=== PATIENT | male | born 1955 | race Caucasian/White ===

== ENCOUNTER 2017-01-26 17:44 | Inpatient (IN) | payer MEDICAID ==
[~2017-01-26] VITALS: Ht 172.7 cm; Wt 65.8 kg
[~2017-01-26 17:44] MED LIST: CIPRO 500MG TA500 MG PO; PREDNISONE 10MG10 MG PO
[2017-01-26 17:50] VITALS: BP 124/74
--- OUTSIDE RECORDS SUMMARY | 2017-01-26 18:39 | External Medical Summary Rpt ---
Author Author , Organization [employer] Address Unknown Phone Unavailable Purpose Continuity of Care Document - through 2016
--- OUTSIDE RECORDS SUMMARY | 2017-01-26 18:39 | External Medical Summary Rpt ---
Author Author [employer] Organization [employer] Address Unknown Phone Unavailable Purpose Continuity of Care Document - through 2016
--- OUTSIDE RECORDS SUMMARY | 2017-01-26 18:39 | External Medical Summary Rpt ---
Demographics Preferred Language New Zealander Marital Status Unknown Rastafari Affiliation Unknown Race Unknown Ethnic Group Unknown Author Author , Organization [employer] Address Unknown Phone Unavailable Purpose Continuity of Care Document - through 2016 Immunization No patient found.
--- OUTSIDE RECORDS SUMMARY | 2017-01-26 18:39 | External Medical Summary Rpt ---
Author Author [facility] [employer], [employer] Organization [employer] Address Unknown Phone Unavailable
--- OUTSIDE RECORDS SUMMARY | 2017-01-26 18:39 | External Medical Summary Rpt ---
Demographics Preferred Language Georgian Marital Status Unknown Hindu Affiliation Unknown Race Unknown Ethnic Group Unknown Author Author , Organization [employer] Address Unknown Phone Unavailable Purpose Continuity of Care Document - through 2016 Immunization No patient found.
[2017-01-26 18:58] LABS: HEMOGLOBIN 15.8 g/dL (14.1-18.0); LYMPH # 0.9 K/mm3 (0.7-4.5); LYMPH % 12.8 % (10-50)
--- NOTE | 2017-01-26 19:06 | Emergency Room Report ---
History of Present Illness Time Seen by MD Swain Presenting Problem in Triage Pt arrived:Walked Presenting Problem:PT SIGNIFICANT OTHER STATES PT HAS HAD DIFFICULTY HEARING X3 DAYS, PRODUCTIVE COUGH Onset of symptoms date/time:01/23/17/ or onset unknown for:MEDICAL HX UNKNOWN Treatment Prior to Arrival: TEXTILE DYER Provided by: Sepsis Risk Assessment: Temp: 103.1 B/P: 117/82 MAP: 90 Pulse: 111 Resp: 20 Recent fever? Y Clinical Suspician of Infection? N Mental Status: 1 - Regular (Normal Baseline) Sepsis Risk:Possible Sepsis Risk Have you (or family members/close friends) recently traveled outside the [place]? N If Yes, where/when: Have you had exposure to infectious disease within the past month? N TB? Other? Specify: Source patient, RN notes reviewed, family, old records Exam Limitations no limitations Comment over the last few days prod cough with sob and fever with dec po intake Cardiac Chest Pain Chest pain indicative of cardiac No Timing/Duration this evening Severity moderate ALLERGIES Coded Allergies: No Known Allergies (01/26/17) Home Medications Reported Medications No Known Home Medications History Medical History General CAD? No Angina: No [place]: No Hypertension? No Hyperlipidemia? No CHF? No DVT? No PE? No COPD? No Asthma? No Anemia? No GERD? No Gastric ulcers? No GI Bleed? No Hernia? No Thyroid Problems? No Hypothyroidism? No CVA? No Seizures? No Diabetes? No Renal Insuffiency? No End Stage Renal Disease? No UTI? No Stones? No GB Disease: No Nephritic Syndrome? No Asplenia? No Hepatitis? No Sickle Cell Disease? No Arthritis? No Migraines? No Cataracts? No Glaucoma? No MRSA? No HIV? No TB? No Anxiety? No Depression? No Cancer? No More? No Immunization Hx DT/Tetanus UNKNOWN Flu NEVER Pneumonia NEVER Surgical Hx Previous Surgery?Y NASAL CAUTERY A CHILD THROAT POLYP REMOVED Family History Family Hx Diabetes Yes CAD Yes Hypertension No Hyperlipidemia No Cancer No TB No Social History Smoking Hx Smoker: Current Every Day Smoker Tobacco: Yes Type Cigarettes Packs/day < 1 Pack Alcohol Alcohol: Yes Drugs none Review of Systems All Other Systems Reviewed and Negative Constitutional see HPI, fever Eyes denies drainage ENT denies: ear pain, epistaxis, throat pain. Respiratory cough, shortness of breath, denies wheezing Cardiovascular denies chest pain, denies syncope Gastrointestinal see HPI, denies abdominal pain, denies diarrhea, denies vomiting, other Genitourinary denies: dysuria, frequency, hesitancy, hematuria. Musculoskeletal denies back pain, denies joint pain, denies joint swelling, denies neck pain Skin denies rash Psychiatric/Neurological denies headache, denies seizure Physical Exam Vital Signs Vital Signs Date Time Temp Pulse Resp B/P Pulse O2 O2 Flow FiO2 Ox Delivery Rate 01/27 1844 103.1 111 20 117/82 92 01/26 1750 100.2 117 22 124/74 96 - WBC >12,000 or <4,000 or 10% bands? 2 or more SIRS Criteria Met? B/P:117/82 MAP:90 Creatinine >2.0? UA output<0.5ml/kg/hr for 2 hrs? Platelet count >100,000? Lactate >2.0mmol/1? INR >1.2 or PTT > than 60 sec? Evidence of Organ Dysfunction? Provider documented clinical suspician of infection? N Sepsis Criteria Count: 2 Sepsis Risk: Possible Sepsis Risk General Appearance no apparent distress Eye Exam - bilateral eye PERRL, bilateral eye EOMI Ear, Nose, Throat normal ENT inspection Neck supple Respiratory Status No: respiratory distress. Lung Sounds bilateral: rhonchi. 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 No Results/Orders Laboratory Tests 01/26/171839: Lactic Acid 1.5 01/26/171839: Creatine Kinase 302, CK-MB (CK-2) Rel Index 0.2, CK and CKMB Interp < 0.5, Troponin I 0.02 01/26/171839: Sodium 126 L, Potassium 3.8, Chloride 92 L, Carbon Dioxide 23, BUN 32 H, Creatinine 1.5 H, Estimated Creat Clear 55, Estimated GFR (MDRD) 48, Glucose 143 H, Calcium 7.7 L, Total Bilirubin 0.3, AST 43 H, ALT 32, Alkaline Phosphatase 43 L, Total Protein 7.6, Albumin 3.1 L, Globulin 4.5 H, Albumin/ Globulin Ratio 0.7 L, WBC 7.3, RBC 4.88, Hgb 15.8, Hct 47.2, MCV 96.6, RDW 12.6 , Plt Count 108 L, MPV 8.5, Gran % 80.8 H, Gran # 5.9, Lymphocytes % 12.8, Monocytes % 5.6, Eosinophils % 0.6, Basophils % 0.2, Lymphocytes # 0.9, Monocytes # 0.4, Eosinophils # 0.0, Basophils # 0.0, PUBS MCHC 33.4, MCH 32.3 H Current Medication Orders Sig/Angelika Start time Last Medication Dose Route Stop Time Status Admin Azithromycin 500 MG ONCE ONE 01/27 2000 AC Sodium Chloride 250 ML IV 01/26 2059 Ceftriaxone Sodium 1 GM ONCE ONE 01/27 2000 AC 01/26 Sodium Chloride 50 ML IV 01/26 2029 195 Acetaminophen 1,000 MG ONCE ONE 01/26 183 DCr 01/26 PO 01/26 183 183 Methylprednisolone 125 MG ONCE ONE 01/26 1830 DC 01/26 Sodium Succinate IV 01/26 183 1834 Sodium Chloride 1,000 ML .Q1H1M 01/26 1830 DC 01/26 IV 01/26 1930 1833 Sodium Chloride 10 ML PRN PRN 01/26 183 AC IV 01/27 181 Methylprednisolone 0 .STK-MED ONE 01/26 1826 DC Sodium Succinate .ROUTE Sodium Chloride 1,000 ML .STK-MED ONE 01/26 182 DC IV Acetaminophen 0 .STK-MED ONE 01/26 182 DCr PO Albuterol/Ipratropium 3 ML ONCE ONE 01/26 1800 DC 01/26 INH 01/26 180 1835 Sodium Chloride 10 ML PRN PRN 01/26 1800 AC IV 01/27 175 Albuterol/Ipratropium 0 .STK-MED ONE 01/26 1755 DC INH Orders Procedure Date/time Status CULTURE, SPUTUM 01/26 192 Active CARDIAC ENZYMES 01/26 190 Complete RT Aerosol Treatment, Provide 01/26 1800 Active RT REQUEST DUONEB 01/27 1756 Active CHEST(2 VIEWS-NOT PORTABLE) 01/27 1756 Active IV SALINE LOCK 01/27 1756 Active CULTURE, BLOOD 01/27 1756 Active LACTIC ACID 01/27 1756 Complete CBC WITH AUTO DIFF 01/27 1756 Complete CHEM 12 PROFILE 01/27 1756 Complete XRAY/CT/US XRAY/CT/US XRAY chest XR interpretation by reviewed by me Xray Results abnormal (cap) Departure Departure Time of Disposition 1943 Disposition Still a Patient Clinical Impression Primary Impression: CAP (community acquired pneumonia) Secondary Impressions: Renal insufficiency Condition STABLE Referrals Lianna Bagley MD discussed with dr bagley Prescriptions Current Visit Scripts No Known Home Medications ED Critical Care Critical Care No at 1959
[2017-01-26 21:15] VITALS: BP 95/53
--- NOTE | 2017-01-26 21:52 | RADIOLOGY REPORT PS360 ---
CHEST(2 VIEWS-NOT PORTABLE) COMPARISON: PA and lateral chest 10/07/2011 HISTORY: Shortness of breath, productive cough TECHNIQUE: PA and lateral to FINDINGS: Mild emphysematous changes seen with mild hyperexpansion lung kruse and flattening of the hemidiaphragms. There is a somewhat poorly defined opacity in the right perihilar region extending into the posterior segment of the right upper lobe. Right hilum is somewhat obscured by overlying opacity. I do not see typical air bronchograms the possibility of a right hilar mass with postobstructive pneumonitis cannot be excluded. The remainder of the right upper lobe is clear and right lower lobe is clear and the left lung field is clear. Cardiac size is normal. There are small calcified hilar nodes bilaterally. IMPRESSION: Mild COPD right perihilar right upper lobe pneumonia versus possible small right hilar mass and/or endobronchial lesion with postobstructive pneumonitis and I would suggest a follow-up CT scan chest for better evaluation.
[2017-01-26 21:58] VITALS: BP 95/53
[2017-01-27] VITALS (8 sets, daily range): BP systolic 101–137; BP diastolic 60–75
[2017-01-27 06:56] LABS: HEMOGLOBIN 14.6 g/dL (14.1-18.0); LYMPH # 0.8 K/mm3 (0.7-4.5)
--- NOTE | 2017-01-27 07:22 | PHARMACY CLINIC NOTE ---
Patient Demographics Patient Demographics Admission date: 01/26/17 Date: 01/27/17 Time: 07 Allergies Coded Allergies: No Known Allergies (01/26/17) HEIGHT- FT: 5 IN: 8.00 K.772 VTE General Information Labs: Laboratory Tests 01/27 01/26 0642 1840 Hematology Hgb (14.1 - 18.0 g/dL) 14.6 15.8 Hct (42.0 - 52.0 %) 44.7 47.2 Plt Count (142 - 424 K/mm3) 91 L 108 L Disclaimer The following section includes nursing documentation that has been pulled in for pharmacy review. Patient's VTE score: 4 Patient's VTE Risk: LOW RISK Clinical trial participant? No VTE prophylaxis [id number] VTE prophylaxis ordered? Yes Type of prophylaxis/treatment: OMAR at 0722
--- NOTE | 2017-01-27 08:57 | HISTORY AND PHYSICAL REPORT ---
History and Physical ([facility]) Date of admission: 01/26/17 Chief complaint: Shortness of breath History: History of Present Illness: Mr. Mccoy is a 61 year old male with a history of tobacco usage and COPD who presented to [facility] ER with worsening SOB and cough. He states the cough started about 1 week ago. He did try OTC mucinex DM which did not help. He also started with diarrhea. He has not been eating or drinking much for about 1 week. With evaluation in the ER he had an abnormal X-ray which indicated pneumonia with a possible mass. He was admitted for further evaluation and treatment. Past Medical History: Medical History: CAD? No Angina: No [place]: No Hypertension? No Hyperlipidemia? No CHF? No DVT? No PE? No COPD? No Asthma? No Anemia? No GERD? No Gastric ulcers? No GI Bleed? No Hernia? No Thyroid Problems? No Hypothyroidism? No CVA? No Seizures? No Diabetes? No Renal Insuffiency? No UTI? No Stones? No GB Disease: No Nephritic Syndrome? No Asplenia? No Hepatitis? No Sickle Cell Disease? No Arthritis? No Migraines? No Cataracts? No Glaucoma? No MRSA? No HIV? No TB? No Anxiety? No Depression? No Cancer? No More? No Surgical history: Previous Surgery?Y NASAL CAUTERY A CHILD THROAT POLYP REMOVED Medications: Reported Medications No Known Home Medications Allergies: Coded Allergies: No Known Allergies (01/26/17) Family History: Family history: Postive for: CAD, DM, HTN. Social History: Smoking Hx Tobacco: Yes Smoker: Current Every Day Smoker Type: Cigarettes Packs/day: 1 1/2 - 2 Packs Are you exposed to second hand Yes Alcohol: Alcohol: Yes How much do you drink 3-5 Drinks Per Day For how long Longer Than 5 Years When was your last drink Greater Than 72 Hours Ago Comment PT STATES HE DRINKS BEER BUT HASNT HAD A DRINK FOR A WEEK Hx of Drug Use: Drug Use? No Review of Systems: ENT No: ear ache ([place]), sore throat. Cardiovascular No: chest pain, palpitations. Respiratory Positive for: shortness of air, pneumonia, productive cough (sputum), wheezing. GI Positive for: GERD. No: abdominal pain, constipation, diarrhea, hematemeis, hematochezia, nausea, vomitting. (male) No: hematuria. Neurological No: headache, seizure, syncope. Musculoskeletal No: joint pain. Physical Exam: Vital signs: 1ST Vital Signs Result Date Time Pulse Ox 96 01/26 1750 B/P 124/74 01/26 1750 Temp 100.2 01/26 1750 Pulse 117 01/26 1750 Resp 22 01/26 1750 O2 Flow Rate 2 01/26 2010 O2 Delivery OXYGEN 01/26 2115 Exam: General appearance: alert, no acute distress, thin Eyes: anicteric ENT: pharynx normal, dry mucous membranes, coated tongue Neck: no carotid bruit, lymphadenopathy (absent), thyroid (normal) Cardiovascular: regular rate & rhythm Respiratory: bilateral inspiratory and expiratory wheeze ABD: non-distended, soft, no tenderness, no guarding Extremities: no peripheral edema, no calf tenderness Neuro: alert, oriented, speech clear, [place] Lab data: Labs: Laboratory Tests 01/27/17 0642: Sodium 131 L, Potassium 3.7, Chloride 98, Carbon Dioxide 22, BUN 18, Creatinine 1.0, Estimated Creat Clear 72, Estimated GFR (MDRD) 76, Glucose 162 H, Calcium 7.5 L, WBC 6.2, RBC 4.51 L, Hgb 14.6, Hct 44.7, MCV 99.0 H, RDW 12.9, Plt Count 91 L, MPV 8.5, Gran % 84.6 H, Gran # 5.2, Lymphocytes % 12.0, Monocytes % 2.7, Eosinophils % 0.6, Basophils % 0.2, Lymphocytes # 0.8, Monocytes # 0.2, Eosinophils # 0.0, Basophils # 0.0, PUBS MCHC 32.7, MCH 32.4 H 01/26/170: Lactic Acid 1.5 01/26/171839: Creatine Kinase 302, CK-MB (CK-2) Rel Index 0.2, CK and CKMB Interp < 0.5, Troponin I 0.02 01/26/171839: Sodium 126 L, Potassium 3.8, Chloride 92 L, Carbon Dioxide 23, BUN 32 H, Creatinine 1.5 H, Estimated Creat Clear 55, Estimated GFR (MDRD) 48, Glucose 143 H, Calcium 7.7 L, Total Bilirubin 0.3, AST 43 H, ALT 32, Alkaline Phosphatase 43 L, Total Protein 7.6, Albumin 3.1 L, Globulin 4.5 H, Albumin/ Globulin Ratio 0.7 L, WBC 7.3, RBC 4.88, Hgb 15.8, Hct 47.2, MCV 96.6, RDW 12.6 , Plt Count 108 L, MPV 8.5, Gran % 80.8 H, Gran # 5.9, Lymphocytes % 12.8, Monocytes % 5.6, Eosinophils % 0.6, Basophils % 0.2, Lymphocytes # 0.9, Monocytes # 0.4, Eosinophils # 0.0, Basophils # 0.0, PUBS MCHC 33.4, MCH 32.3 H Microbiology 01/26 1930 SPUTUM: Sputum Culture - RES 01/26 1930 SPUTUM: Gram Stain - RES 01/27 1840 BLOOD: Anaerobic Blood Culture - RECD 01/27 1840 BLOOD: Aerobic Blood Culture - RECD 01/27 1840 BLOOD: Anaerobic Blood Culture - RECD 01/27 1840 BLOOD: Aerobic Blood Culture - RECD Radiology results: Results: CXR IMPRESSION: Mild COPD right perihilar right upper lobe pneumonia versus possible small right hilar mass and/or endobronchial lesion with postobstructive pneumonitis and I would suggest a follow-up CT scan chest for better evaluation. Diagnosis(es): 1. Renal insufficiency 2. CAP (community acquired pneumonia) 3. Mild dehydration 4. Tobacco use disorder 5. Abnormality of lung on CXR Plan: CT of the chest; continue with IVF, steriods, neb Tx, and ABX (Aranza Cutler APRN) Date of admission: 01/26/17 Diagnosis(es): 1. CAP (community acquired pneumonia) 2. Abnormality of lung on CXR 3. COPD (chronic obstructive pulmonary disease) 4. Renal insufficiency Assessment/Plan resolved with hydration 5. Mild dehydration 6. Tobacco use disorder 7. Thrombocytopenia 8. Poor dentition 9. Hearing loss Plan: Pt seen and examined. Concur with above assessment and plan. (Lianna Duff MD) at 0856 at 1021
--- NOTE | 2017-01-27 10:30 | RADIOLOGY REPORT PS360 ---
CT CHEST W/ CONTRAST INDICATION: Shortness of breath, productive cough, abnormal chest x-ray, right upper lobe mass versus pneumonia ABN.CXR,RUL PNEUMONIAVS RIGHT HILAR MASS ORDERING PHYSICIAN: Lianna Duff MD PATIENT AGE: 61 years COMPARISON: Radiograph of 01/26/2017 TECHNIQUE: Axial images are obtained with contrast. Sagittal and coronal reformatted images are reviewed as well. FINDINGS: No obvious mediastinal mass evident. Some there is small subcarinal lymph nodes measuring up to 2 x 1.1 cm. Small right hilar nodes are also present. There is dense consolidation within the posterior segment of the right upper lobe and within the superior segment of the right lower lobe. The consolidation is more dense towards the central aspect of the lung.. There is mild consolidation in the right lung base posteriorly with a trace right pleural effusion. Minimal central density present in the left upper lobe and in the superior segment of the left lower lobe also probably related to areas of pneumonitis. There are mild centrilobular emphysematous changes Coronary artery calcifications are present. There is normal heart size. Upper abdominal images are unremarkable aside from mild nonspecific gallbladder wall thickening. IMPRESSION: 1. Dense consolidation in the posterior segment of the right upper lobe. Probably related to dense pneumonia. Cannot completely exclude a pulmonary mass lesion. There are other areas of pneumonia as well. Recommend follow-up exam in 2-4 weeks following the appropriate treatment for pneumonia. There is trace right effusion and small parenchymal opacities in the left upper lobe and left lower lobe also probably related to underlying pneumonia. 2. Emphysema. 3. Coronary artery disease
[2017-01-28] VITALS (8 sets, daily range): BP systolic 109–151; BP diastolic 61–82
--- NOTE | 2017-01-28 08:23 | ACUTE CARE PROGRESS NOTE (QUA) ---
Progress Notes Subjective Date 01/28/17 Time 0820 Note Patient states he feels slightly better today. He still has a very congested and productive cough. He is still wheezing and short of air. He rested off and on throughout the night. Objective Findings Last VS-Temp:99.9 B/P:138/80 Pulse:113 Resp:20 SaO2:94 ROOM AIR Last weight lbs:145 oz:0 K.772 Method:Floor Scales CXR - Mild COPD right perihilar right upper lobe pneumonia versus possible small right hilar mass and/or endobronchial lesion with postobstructive pneumonitis and I would suggest a follow-up CT scan chest for better evaluation. Chest CT - Dense consolidation in the posterior segment of the right upper lobe. Probably related to dense pneumonia. Cannot completely exclude a pulmonary mass lesion. There are other areas of pneumonia as well. Recommend follow-up exam in 2-4 weeks following the appropriate treatment for pneumonia. There is trace right effusion and small parenchymal opacities in the left upper lobe and left lower lobe also probably related to underlying pneumonia. Emphysema. Coronary artery disease. Exam General appearance: alert, awake, no acute distress, coughing Cardiovascular: regular rate & rhythm Respiratory: wheezing bilaterally, rhonchi on the right side ABD: non-distended, normal bowel sounds, no rebound, soft, no tenderness, no guarding Extremities: no peripheral edema Assessment/Plan Problem List 1. CAP (community acquired pneumonia) 2. Abnormality of lung on CXR 3. COPD (chronic obstructive pulmonary disease) 4. Renal insufficiency 5. Mild dehydration 6. Tobacco use disorder 7. Thrombocytopenia 8. Poor dentition 9. Hearing loss Plan: Still awaiting sputum results. Will continue antibiotics and current care. This inpt stay is expected to cross 2 MNs from start of care Yes (Mariaa Rodríguez) Subjective Date 01/28/17 Time 0830 Assessment/Plan Problem List 1. CAP (community acquired pneumonia) 2. Abnormality of lung on CXR 3. COPD (chronic obstructive pulmonary disease) 4. Renal insufficiency 5. Mild dehydration 6. Tobacco use disorder 7. Thrombocytopenia 8. Poor dentition 9. Hearing loss Plan: Pt seen and examined. He is wheezing a little more today. CT appears to show only a dense pneumonia. Will continue treatment of the pneumonia and plan to repeat CT after resolution. (Lianna Duff MD) at 0823 at [phone]
[2017-01-29 04:00] VITALS: BP 113/57
[2017-01-29 07:08] LABS: HEMOGLOBIN 13.6 g/dL (14.1-18.0); LYMPH # 1.6 K/mm3 (0.7-4.5); LYMPH % 21.1 % (10-50)
[2017-01-29 08:00] VITALS: BP 94/64
--- NOTE | 2017-01-29 08:11 | ACUTE CARE PROGRESS NOTE (QUA) ---
Progress Notes Subjective Date 01/29/17 Time 0807 Note Patient states he feels a little bit better today. He is still coughing up sputum. He's been sweating due to a fever. He states his appetite has improved slightly today and he has been able to sit up and eat. Objective Findings Last VS-Temp:99.9 B/P:113/57 Pulse:99 Resp:20 SaO2:93 OXYGEN Last weight lbs:145 oz:0 K.772 Method:Floor Scales Laboratory Tests 01/29/17 0646: Sodium 131 L, Potassium 4.1, Chloride 100, Carbon Dioxide 27, BUN 10, Creatinine 0.9, Estimated Creat Clear 80, Estimated GFR (MDRD) 86, Glucose 110 H, Calcium 7.5 L, WBC 7.4, RBC 4.30 L, Hgb 13.6 L, Hct 42.2, MCV 98.1 H, RDW 13.0, Plt Count 125 L, MPV 8.3, Gran % 73.3, Gran # 5.4, Lymphocytes % 21.1, Monocytes % 5.1, Eosinophils % 0.2, Basophils % 0.4, Lymphocytes # 1.6, Monocytes # 0.4, Eosinophils # 0.0, Basophils # 0.0, PUBS MCHC 32.3, MCH 31.7 H Exam General appearance: alert, awake, no acute distress Cardiovascular: regular rate & rhythm Respiratory: rhonchi and rales on the right, faint wheezing ABD: non-distended, normal bowel sounds, no rebound, soft, no tenderness, no guarding Extremities: no peripheral edema Reviewed: Sputum - normal respiratory carlton Assessment/Plan Problem List 1. CAP (community acquired pneumonia) 2. Abnormality of lung on CXR 3. COPD (chronic obstructive pulmonary disease) 4. Renal insufficiency 5. Mild dehydration 6. Tobacco use disorder 7. Thrombocytopenia 8. Poor dentition 9. Hearing loss Plan: Sputum showed normal carlton however patient clinically has pneumonia. Will continue abx. This inpt stay is expected to cross 2 MNs from start of care Yes (Mariaa Rodríguez) Subjective Date 01/29/17 Time 0844 Assessment/Plan Problem List 1. CAP (community acquired pneumonia) 2. Abnormality of lung on CXR 3. COPD (chronic obstructive pulmonary disease) 4. Renal insufficiency 5. Mild dehydration 6. Tobacco use disorder 7. Thrombocytopenia 8. Poor dentition 9. Hearing loss Plan: Rested a little better. More wheezing this morning. Will add steroids. Repeat CXR. Sputum culture with normal carlton. Will check PCR. C/o "burning" down into his chest when he swallows. Add PPI. (Lianna Duff MD) at 0810 at 0847
--- NOTE | 2017-01-29 13:52 | RADIOLOGY REPORT PS360 ---
CHEST(2 VIEWS-NOT PORTABLE) Ordering Physician: Lianna Duff MD Patient Age: 61 years: Male HISTORY: f/u pneumonia TECHNIQUE: PA and lateral chest FINDINGS Significant Progression of pneumonia right lung since 01/26/[address] chest There is been progression of the dense consolidation at the right midlung.\ Pneumonic infiltrate most evident involving the posterior aspect of right upper lobe just above the fissure also infiltrate involving superior segment right lower lobe. Appears to be slight additional density is seen at the right paty with some of this reflects the additional overlying, progressive infiltrate More diffuse infiltrate is seen throughout entire right lung both right upper lobe right lower lobe. There is also a small right pleural effusion which is become more evident with blunting at the right CP angle left lung remains hyperexpanded and clear. IMPRESSION: -------- Progression of dense focal consolidation right midlung -extends posterior from right paty. Progressive density & prominence at right paty, in part related above. (Remains difficult to exclude underlying mass at right paty and thus follow-up to resolution will be important) Progression of diffuse mainly interstitial infiltrate throughout the posterior right lung.. This was becoming evident on the recent CT chest from January 27, but is shown further progression since that time exam. Small right pleural effusion now evident
[2017-01-29 16:00] VITALS: BP 125/67
[2017-01-29 20:34] VITALS: BP 96/71
[2017-01-29 21:30] VITALS: BP 140/74
[2017-01-29 23:29] VITALS: BP 140/74
[2017-01-30] VITALS (7 sets, daily range): BP systolic 124–150; BP diastolic 63–83
--- NOTE | 2017-01-30 11:29 | ACUTE CARE PROGRESS NOTE (QUA) ---
Progress Notes Subjective Date 01/30/17 Time 1125 Note Pt feeling a little better today. Chest is not as tight. Still coughing but less SOA. Slept better and ate most of his breakfast. Objective Findings Last VS-Temp:97.9 B/P:124/63 Pulse:99 Resp:20 SaO2:94 OXYGEN Last weight lbs:145 oz:0 K.772 Method:Floor Scales CXR 1. Progression of dense focal consolidation right midlung -extends posterior from right paty. 2. Progressive density & prominence at right paty, in part related above. ( Remains difficult to exclude underlying mass at right paty and thus follow-up to resolution will be important) 3. Progression of diffuse mainly interstitial infiltrate throughout the posterior right lung.. This was becoming evident on the recent CT chest from January 27, but is shown further progression since that time exam. 4. Small right pleural effusion now evident Exam General appearance: alert, awake, no acute distress Cardiovascular: regular rate & rhythm Respiratory: less wheezing, better air movement, still with rhonchi on the right ABD: non-distended, normal bowel sounds, no rebound, soft, no tenderness, no guarding Extremities: no peripheral edema Assessment/Plan Problem List 1. CAP (community acquired pneumonia) 2. Abnormality of lung on CXR 3. COPD (chronic obstructive pulmonary disease) 4. Renal insufficiency 5. Mild dehydration 6. Tobacco use disorder 7. Thrombocytopenia 8. Poor dentition 9. Hearing loss Plan: CXR from yesterday shows progression of the right sided pneumonia but the patient is clinically improving. Will continue current treatment and discuss further care with Dr. Duff. This inpt stay is expected to cross 2 MNs from start of care Yes (Mariaa Rodríguez) Subjective Date 01/30/17 Assessment/Plan Problem List 1. CAP (community acquired pneumonia) 2. Abnormality of lung on CXR 3. COPD (chronic obstructive pulmonary disease) 4. Renal insufficiency 5. Mild dehydration 6. Tobacco use disorder 7. Thrombocytopenia 8. Poor dentition 9. Hearing loss Plan: Pt seen and examined this AM. CXR findings are likely lagging his clinical picture and he feels better and has much less wheezing today. Upper respiratory PCR has not been obtained for some reason. Will continue per orders. (Lianna Duff MD) at 1128 at 1231
--- NOTE | 2017-01-30 11:44 | ACUTE CARE PROGRESS NOTE (QUA) ---
Progress Notes Subjective Date 01/30/17 Time 1143 Assessment/Plan Problem List 1. CAP (community acquired pneumonia) 2. Abnormality of lung on CXR 3. COPD (chronic obstructive pulmonary disease) 4. Renal insufficiency 5. Mild dehydration 6. Tobacco use disorder 7. Thrombocytopenia 8. Poor dentition 9. Hearing loss This inpt stay is expected to cross 2 MNs from start of care Yes (Mariaa Rodríguez) Assessment/Plan Problem List 1. CAP (community acquired pneumonia) 2. Abnormality of lung on CXR 3. COPD (chronic obstructive pulmonary disease) 4. Renal insufficiency 5. Mild dehydration 6. Tobacco use disorder 7. Thrombocytopenia 8. Poor dentition 9. Hearing loss (Lianna Duff MD) Antibiotic Stewardship (2) Current Culture Results Microbiology 01/26 1930 SPUTUM: Sputum Culture - COMP 01/26 1930 SPUTUM: Gram Stain - COMP 01/27 1840 BLOOD: Anaerobic Blood Culture - RES 01/26 184 BLOOD: Aerobic Blood Culture - RES Infxn that will respond? Yes Right drug,dose,and route? Yes More targeted antbx? No How long atbx needed? 14 (Mariaa Rodríguez) at 1143 at 1237
[2017-01-30 16:10] LABS: CORONAVIRUS 229E NOT DETECTED (NOT DETECTE); CORONAVIRUS HKU 1 NOT DETECTED (NOT DETECTE); CORONAVIRUS NL63 NOT DETECTED (NOT DETECTE); CORONAVIRUS OC43 NOT DETECTED (NOT DETECTE); RHINOVIRUS/ENTEROVIRUS NOT DETECTED (NOT DETECTE)
[2017-01-31] VITALS (8 sets, daily range): BP systolic 124–144; BP diastolic 63–84
--- NOTE | 2017-01-31 08:49 | ACUTE CARE PROGRESS NOTE (QUA) ---
Progress Notes Subjective Date 01/31/17 Time 0848 Note Subjectively feels better. Still with productive cough. No chest pain. He has been ambulating some in the hallway. Appetite is improving and he is having less pain with swallowing. Objective Findings Last VS-Temp:97.6 B/P:124/76 Pulse:102 Resp:20 SaO2:96 OXYGEN Last weight lbs:145 oz:0 K.772 Method:Floor Scales Upper Respiratory PCR panel positive for adenovirus Exam General appearance: alert, no acute distress ENT: very AMBLER Cardiovascular: regular rate & rhythm Respiratory: Generally diminished BS, R>L. Bilateral faint wheezes improved ABD: normal bowel sounds, soft, no tenderness Assessment/Plan Problem List 1. CAP (community acquired pneumonia) 2. Abnormality of lung on CXR 3. COPD (chronic obstructive pulmonary disease) 4. Renal insufficiency 5. Mild dehydration 6. Tobacco use disorder 7. Thrombocytopenia 8. Poor dentition 9. Hearing loss 10. Adenovirus infection Plan: Slowly improving and feels much better. Will switch to oral prednisone and may be ready for discharge in next couple of days. This inpt stay is expected to cross 2 MNs from start of care Yes Antibiotic Stewardship (2) Infxn that will respond? Yes Right drug,dose,and route? Yes More targeted antbx? No at 1240
[2017-02-01] VITALS (8 sets, daily range): BP systolic 140–165; BP diastolic 67–96
--- NOTE | 2017-02-01 08:34 | ACUTE CARE PROGRESS NOTE (QUA) ---
Progress Notes Subjective Date 02/01/17 Time 0730 Note Patient states he is better; slept well; eating better; walking with less SOB; continues with productive cough Objective Findings Vital Signs Date Time Temp Pulse Resp B/P Pulse O2 O2 Flow FiO2 Ox Delivery Rate 02/01 0642 2.5 02/01 0559 2.5 02/01 0506 2.5 02/01 0410 2.5 02/01 0408 97.5 101 18 159/96 95 OXYGEN 2.5 02/01 0321 89 ROOM AIR 02/01 0310 2.5 02/01 0213 2.5 02/01 0113 2.5 01/31 2359 2.5 01/31 2359 97.7 102 20 138/72 93 OXYGEN 2.5 01/31 2252 2.5 01/31 2159 2.5 01/31 2134 2.5 01/31 2134 97.4 98 22 144/84 95 2.5 01/31 2003 2.5 01/31 2003 97.4 98 22 144/84 95 OXYGEN 2.5 01/31 1937 2.5 01/31 1848 2.5 01/31 1825 2.5 01/31 1726 2.5 01/31 1639 2.5 01/31 1639 98.7 94 18 142/83 95 OXYGEN 2.5 01/31 1519 2.5 01/31 1410 2.5 01/31 1351 2.5 01/31 1156 97.9 102 20 131/63 96 OXYGEN 2.5 01/31 1149 2.5 01/31 1115 2.5 01/31 0946 2.5 Current Medications Prednisone 20 MG BID PO Sodium Chloride 10 ML PRN PRN IV Pantoprazole Sodium 40 MG QHS PO Albuterol/Ipratropium 3 ML Q6H6 INH Methylprednisolone Sodium Succinate 80 MG Q8 IV (DC) Famotidine 20 MG DAILY PO Azithromycin 500 MG 2100 IV Sodium Chloride 250 ML Ceftriaxone Sodium 1 GM 2100 IV Sodium Chloride 50 ML Al Hydroxide/Mg Hydroxide 30 ML Q8HP PRN PO Acetaminophen 650 MG Q4HP PRN PO Nicotine 21 MG DAILYP PRN TD Ondansetron HCl 4 MG Q6HP PRN IV Sodium Chloride 1,000 ML .[id number] IV (DC) Sodium Chloride 10 ML PRN PRN IV 05/14 1500 05/14 2300 02/01 0700 Intake Total 023 202 6350 Output Total Balance 108 988 7846 Intake, IV 825 Intake, Oral 720 120 240 Output, Stool Last VS-Temp:97.5 B/P:159/96 Pulse:101 Resp:18 SaO2:95 OXYGEN Last weight lbs:145 oz:0 K.772 Method:Floor Scales Exam General appearance: alert, active, no acute distress, thin Cardiovascular: regular rate & rhythm Respiratory: bilateral inspiratory and expiratory wheeze throughout ABD: non-distended, soft, no tenderness Extremities: no peripheral edema, no calf tenderness Neuro: alert, oriented Assessment/Plan Problem List 1. CAP (community acquired pneumonia) 2. Abnormality of lung on CXR 3. COPD (chronic obstructive pulmonary disease) 4. Renal insufficiency 5. Mild dehydration 6. Tobacco use disorder 7. Thrombocytopenia 8. Poor dentition 9. Hearing loss 10. Adenovirus infection Patient condition Improving Plan: continue current care This inpt stay is expected to cross 2 MNs from start of care Yes (Aranza Cutler APRN) Assessment/Plan Problem List 1. CAP (community acquired pneumonia) 2. Abnormality of lung on CXR 3. COPD (chronic obstructive pulmonary disease) 4. Renal insufficiency 5. Mild dehydration 6. Tobacco use disorder 7. Thrombocytopenia 8. Poor dentition 9. Hearing loss 10. Adenovirus infection Comments: Patient seen and agree with above note. (Aditya Thompson MD) Antibiotic Stewardship (2) Infxn that will respond? Yes Right drug,dose,and route? Yes More targeted antbx? No (Aranza Cutler APRN) at 0834 at 0853
--- NOTE | 2017-02-01 08:34 | ACUTE CARE PROGRESS NOTE (QUA) ---
Progress Notes Subjective Date 02/01/17 Time 0730 Note Patient states he is better; slept well; eating better; walking with less SOB; continues with productive cough Objective Findings Vital Signs Date Time Temp Pulse Resp B/P Pulse O2 O2 Flow FiO2 Ox Delivery Rate 02/01 0642 2.5 02/01 0559 2.5 02/01 0506 2.5 02/01 0410 2.5 02/01 0408 97.5 101 18 159/96 95 OXYGEN 2.5 02/01 0321 89 ROOM AIR 02/01 0310 2.5 02/01 0213 2.5 02/01 0113 2.5 01/31 2359 2.5 01/31 2359 97.7 102 20 138/72 93 OXYGEN 2.5 01/31 2252 2.5 01/31 2159 2.5 01/31 2134 2.5 01/31 2134 97.4 98 22 144/84 95 2.5 01/31 2003 2.5 01/31 2003 97.4 98 22 144/84 95 OXYGEN 2.5 01/31 1937 2.5 01/31 1848 2.5 01/31 1825 2.5 01/31 1726 2.5 01/31 1639 2.5 01/31 1639 98.7 94 18 142/83 95 OXYGEN 2.5 01/31 1519 2.5 01/31 1410 2.5 01/31 1351 2.5 01/31 1156 97.9 102 20 131/63 96 OXYGEN 2.5 01/31 1149 2.5 01/31 1115 2.5 01/31 0946 2.5 Current Medications Prednisone 20 MG BID PO Sodium Chloride 10 ML PRN PRN IV Pantoprazole Sodium 40 MG QHS PO Albuterol/Ipratropium 3 ML Q6H6 INH Methylprednisolone Sodium Succinate 80 MG Q8 IV (DC) Famotidine 20 MG DAILY PO Azithromycin 500 MG 2100 IV Sodium Chloride 250 ML Ceftriaxone Sodium 1 GM 2100 IV Sodium Chloride 50 ML Al Hydroxide/Mg Hydroxide 30 ML Q8HP PRN PO Acetaminophen 650 MG Q4HP PRN PO Nicotine 21 MG DAILYP PRN TD Ondansetron HCl 4 MG Q6HP PRN IV Sodium Chloride 1,000 ML .[id number] IV (DC) Sodium Chloride 10 ML PRN PRN IV 05/14 1500 05/14 2300 02/01 0700 Intake Total 263 675 3011 Output Total Balance 103 503 4486 Intake, IV 825 Intake, Oral 720 120 240 Output, Stool Last VS-Temp:97.5 B/P:159/96 Pulse:101 Resp:18 SaO2:95 OXYGEN Last weight lbs:145 oz:0 K.772 Method:Floor Scales Exam General appearance: alert, active, no acute distress, thin Cardiovascular: regular rate & rhythm Respiratory: bilateral inspiratory and expiratory wheeze throughout ABD: non-distended, soft, no tenderness Extremities: no peripheral edema, no calf tenderness Neuro: alert, oriented Assessment/Plan Problem List 1. CAP (community acquired pneumonia) 2. Abnormality of lung on CXR 3. COPD (chronic obstructive pulmonary disease) 4. Renal insufficiency 5. Mild dehydration 6. Tobacco use disorder 7. Thrombocytopenia 8. Poor dentition 9. Hearing loss 10. Adenovirus infection Patient condition Improving Plan: continue current care This inpt stay is expected to cross 2 MNs from start of care Yes (Aranza Cutler APRN) Assessment/Plan Problem List 1. CAP (community acquired pneumonia) 2. Abnormality of lung on CXR 3. COPD (chronic obstructive pulmonary disease) 4. Renal insufficiency 5. Mild dehydration 6. Tobacco use disorder 7. Thrombocytopenia 8. Poor dentition 9. Hearing loss 10. Adenovirus infection Comments: Patient seen and agree with above note. (Aditya Thompson MD) Antibiotic Stewardship (2) Infxn that will respond? Yes Right drug,dose,and route? Yes More targeted antbx? No (Aranza Cutler APRN) at 0834 at 0840
[2017-02-02 04:15] VITALS: BP 167/98
--- NOTE | 2017-02-02 08:04 | ACUTE CARE PROGRESS NOTE (QUA) ---
Progress Notes Subjective Date 02/02/17 Time 0750 Note Better today; has already eaten a fast food breakfast sandwich; has spoken with Shadia Nicholas about hospital bill; continues with loose stools; breathing better; continues with a cough. SOB with exertion. BP is elevated Objective Findings Vital Signs Date Time Temp Pulse Resp B/P Pulse O2 O2 Flow FiO2 Ox Delivery Rate 02/02 0651 2 02/02 0554 2 02/02 0554 97 OXYGEN 2 02/02 0505 2 02/02 0415 98.3 83 18 167/98 98 OXYGEN 02/02 0305 2 02/01 2326 97.9 79 18 162/96 98 OXYGEN 02/01 2040 98.3 88 16 165/93 98 2.5 05/ 1955 2.5 05/ 1932 98.3 88 16 165/93 98 OXYGEN 05 1859 2.5 05/ 1833 2.5 05/ 1821 2.5 05/ 1731 98.2 90 20 159/92 96 OXYGEN 2.5 05/ 1724 2.5 05/ 1707 2.5 05/ 1707 96 2.5 05/ 1500 2.5 05/ 1500 2.5 05/ 1446 2.5 05/ 1325 97.9 91 20 140/67 97 OXYGEN 2.5 05/ 1300 2.5 05/ 1213 2.5 05/ 1200 2.5 05/15 1111 2.5 05/ 1100 98.2 90 20 159/92 96 2.5 05/ 0900 2.5 / 0846 2.5 05/ 0831 98.0 110 20 151/88 90 OXYGEN 2.5 Current Medications Lisinopril 10 MG DAILY PO (UNV) Azithromycin 500 MG QHS PO Prednisone 20 MG BID PO Sodium Chloride 10 ML PRN PRN IV Pantoprazole Sodium 40 MG QHS PO Albuterol/Ipratropium 3 ML Q6H6 INH Famotidine 20 MG DAILY PO Azithromycin 500 MG 2100 IV (DC) Sodium Chloride 250 ML Ceftriaxone Sodium 1 GM 2100 IV Sodium Chloride 50 ML Al Hydroxide/Mg Hydroxide 30 ML Q8HP PRN PO Acetaminophen 650 MG Q4HP PRN PO Nicotine 21 MG DAILYP PRN TD Ondansetron HCl 4 MG Q6HP PRN IV Sodium Chloride 10 ML PRN PRN IV 0515 1500 05/15 2300 02/02 0700 Intake Total 420 100 Output Total 400 Balance 20 100 Intake, Oral 420 100 Output, Stool Output, Urine 400 Last VS-Temp:98.3 B/P:167/98 Pulse:83 Resp:18 SaO2:97 OXYGEN Last weight lbs:145 oz:0 K.772 Method:Floor Scales Exam General appearance: alert, active, no acute distress, color is better; sitting up in the bed; appears to be feeling better Cardiovascular: regular rate & rhythm Respiratory: expiratory wheeze which is less, throughout ABD: non-distended, soft, no tenderness, no guarding Extremities: no pedal edema Neuro: alert, oriented Assessment/Plan Problem List 1. CAP (community acquired pneumonia) 2. Abnormality of lung on CXR 3. COPD (chronic obstructive pulmonary disease) 4. Renal insufficiency 5. Mild dehydration 6. Tobacco use disorder 7. Thrombocytopenia 8. Poor dentition 9. Hearing loss 10. Adenovirus infection Patient condition improved Plan: O2 removed and will check O2 sat on RA; possibly home today if sats are OK , Lisinopril started for HTN This inpt stay is expected to cross 2 MNs from start of care No (Aranza Cutler APRN) Assessment/Plan Problem List 1. CAP (community acquired pneumonia) 2. Abnormality of lung on CXR 3. COPD (chronic obstructive pulmonary disease) 4. Renal insufficiency 5. Mild dehydration 6. Tobacco use disorder 7. Thrombocytopenia 8. Poor dentition 9. Hearing loss 10. Adenovirus infection Comments: Patient seen and agree with above note. O2 sat 94% on RA. OK to discharge home , discussed smoking cessation. Would like for patient to stay off work until f/ u with Dr. Duff but he is unsure he will be able to due to financial reasons. (Aditya Thompson MD) Antibiotic Stewardship (2) Infxn that will respond? Yes Right drug,dose,and route? Yes More targeted antbx? No (Aranza Cutler APRN) at 0803 at 0858
[2017-02-02] MEDS ORDERED: LISINOPRIL10 MG PO (09:00)
[2017-02-02] MEDS ORDERED: PREDNISONE 10MG10 MG PO (09:00)
[2017-02-02] MEDS ORDERED: PROAIR HFA0.09 MG/AC IH (09:01)
[2017-02-02] MEDS ORDERED: ANORO ELLIPTA1 POW IH (09:02)
[2017-02-02 09:03] VITALS: BP 152/82
[2017-02-02 09:04] VITALS: BP 152/82
[2017-02-02 09:59] VITALS: BP 152/82
--- NOTE | 2017-02-04 09:39 | DISCHARGE SUMMARY STANDARD ---
Discharge Summary ([facility]2) Date of admission: 01/27/17 Date of discharge: 02/02/17 Problem List: 1. CAP (community acquired pneumonia) 2. Abnormality of lung on CXR 3. COPD (chronic obstructive pulmonary disease) 4. Renal insufficiency 5. Mild dehydration 6. Tobacco use disorder 7. Thrombocytopenia 8. Poor dentition 9. Hearing loss 10. Adenovirus infection History of present illness: History of Present Illness: Mr. Mccoy is a 61 year old male with a history of tobacco usage and COPD who presented to [facility] ER with worsening SOB and cough. He stated the cough started about 1 week ago. He did try OTC mucinex DM which did not help. He also started with diarrhea. He has not been eating or drinking much for about 1 week. With evaluation in the ER he had an abnormal X-ray which indicated pneumonia with a possible mass. He was admitted for further evaluation and treatment. Exam on admission: Vital signs: 1ST Vital Signs Result Date Time Pulse Ox 96 01/26 1750 B/P 124/74 01/26 1750 Temp 100.2 01/26 1750 Pulse 117 01/26 1750 Resp 22 01/26 1750 O2 Flow Rate 2 01/26 2010 O2 Delivery OXYGEN 01/26 2115 Exam: General appearance: alert, no acute distress, thin Eyes: anicteric ENT: pharynx normal, dry mucous membranes, coated tongue Neck: no carotid bruit, lymphadenopathy (absent), thyroid (normal) Cardiovascular: regular rate & rhythm Respiratory: bilateral inspiratory and expiratory wheeze ABD: non-distended, soft, no tenderness, no guarding Extremities: no peripheral edema, no calf tenderness Neuro: alert, oriented, speech clear, [facility] Lab data: Labs: Laboratory Tests 01/27/17 0642: Sodium 131 L, Potassium 3.7, Chloride 98, Carbon Dioxide 22, BUN 18, Creatinine 1.0, Estimated Creat Clear 72, Estimated GFR (MDRD) 76, Glucose 162 H, Calcium 7.5 L, WBC 6.2, RBC 4.51 L, Hgb 14.6, Hct 44.7, MCV 99.0 H, RDW 12.9, Plt Count 91 L, MPV 8.5, Gran % 84.6 H, Gran # 5.2, Lymphocytes % 12.0, Monocytes % 2.7, Eosinophils % 0.6, Basophils % 0.2, Lymphocytes # 0.8, Monocytes # 0.2, Eosinophils # 0.0, Basophils # 0.0, PUBS MCHC 32.7, MCH 32.4 H 01/26/171839: Lactic Acid 1.5 01/26/171839: Creatine Kinase 302, CK-MB (CK-2) Rel Index 0.2, CK and CKMB Interp < 0.5, Troponin I 0.02 01/26/171839: Sodium 126 L, Potassium 3.8, Chloride 92 L, Carbon Dioxide 23, BUN 32 H, Creatinine 1.5 H, Estimated Creat Clear 55, Estimated GFR (MDRD) 48, Glucose 143 H, Calcium 7.7 L, Total Bilirubin 0.3, AST 43 H, ALT 32, Alkaline Phosphatase 43 L, Total Protein 7.6, Albumin 3.1 L, Globulin 4.5 H, Albumin/ Globulin Ratio 0.7 L, WBC 7.3, RBC 4.88, Hgb 15.8, Hct 47.2, MCV 96.6, RDW 12.6 , Plt Count 108 L, MPV 8.5, Gran % 80.8 H, Gran # 5.9, Lymphocytes % 12.8, Monocytes % 5.6, Eosinophils % 0.6, Basophils % 0.2, Lymphocytes # 0.9, Monocytes # 0.4, Eosinophils # 0.0, Basophils # 0.0, PUBS MCHC 33.4, MCH 32.3 H Microbiology 01/26 1930 SPUTUM: Sputum Culture - RES 01/26 1930 SPUTUM: Gram Stain - RES 01/27 1840 BLOOD: Anaerobic Blood Culture - RECD 01/27 1840 BLOOD: Aerobic Blood Culture - RECD 01/27 1840 BLOOD: Anaerobic Blood Culture - RECD 01/27 1840 BLOOD: Aerobic Blood Culture - RECD CXR 01/27/17 IMPRESSION: Mild COPD right perihilar right upper lobe pneumonia versus possible small right hilar mass and/or endobronchial lesion with postobstructive pneumonitis and I would suggest a follow-up CT scan chest for better evaluation. Hospital Course: After admission patient was started on oxygen, ABX, duonebs and steroid for pneumonia. He had IVF initially due to poor oral intake. Patient made slow improvement. Respiratory PCR revealed Rhinovirus. Sputum revealed normal carlton and blood cultures were negative. CXR and chest CT were abnormal with possible mass. His cough and SOB did gradually improve. He was eating better and ambulating in his room. BP was elevated and he was started on Lisinopril. On 02/02/17 wheezing was much improved. O2 sats were satisfactory on room air. He was thus discharged home. Laboratory data this visit: 01/27/17 0642: Sodium 131 L, Potassium 3.7, Chloride 98, Carbon Dioxide 22, BUN 18, Creatinine 1.0, Estimated Creat Clear 72, Estimated GFR (MDRD) 76, Glucose 162 H, Calcium 7.5 L, WBC 6.2, RBC 4.51 L, Hgb 14.6, Hct 44.7, MCV 99.0 H, RDW 12.9, Plt Count 91 L, MPV 8.5, Gran % 84.6 H, Gran # 5.2, Lymphocytes % 12.0, Monocytes % 2.7, Eosinophils % 0.6, Basophils % 0.2, Lymphocytes # 0.8, Monocytes # 0.2, Eosinophils # 0.0, Basophils # 0.0, PUBS MCHC 32.7, MCH 32.4 H 01/26/17 1840: Lactic Acid 1.5 01/26/17 1840: Creatine Kinase 302, CK-MB (CK-2) Rel Index 0.2, CK and CKMB Interp < 0.5, Troponin I 0.02 01/26/170: Sodium 126 L, Potassium 3.8, Chloride 92 L, Carbon Dioxide 23, BUN 32 H, Creatinine 1.5 H, Estimated Creat Clear 55, Estimated GFR (MDRD) 48, Glucose 143 H, Calcium 7.7 L, Total Bilirubin 0.3, AST 43 H, ALT 32, Alkaline Phosphatase 43 L, Total Protein 7.6, Albumin 3.1 L, Globulin 4.5 H, Albumin/ Globulin Ratio 0.7 L, WBC 7.3, RBC 4.88, Hgb 15.8, Hct 47.2, MCV 96.6, RDW 12.6 , Plt Count 108 L, MPV 8.5, Gran % 80.8 H, Gran # 5.9, Lymphocytes % 12.8, Monocytes % 5.6, Eosinophils % 0.6, Basophils % 0.2, Lymphocytes # 0.9, Monocytes # 0.4, Eosinophils # 0.0, Basophils # 0.0, PUBS MCHC 33.4, MCH 32.3 H 01/29/17 0646: Sodium 131 L, Potassium 4.1, Chloride 100, Carbon Dioxide 27, BUN 10, Creatinine 0.9, Estimated Creat Clear 80, Estimated GFR (MDRD) 86, Glucose 110 H, Calcium 7.5 L, WBC 7.4, RBC 4.30 L, Hgb 13.6 L, Hct 42.2, MCV 98.1 H, RDW 13.0, Plt Count 125 L, MPV 8.3, Gran % 73.3, Gran # 5.4, Lymphocytes % 21.1, Monocytes % 5.1, Eosinophils % 0.2, Basophils % 0.4, Lymphocytes # 1.6, Monocytes # 0.4, Eosinophils # 0.0, Basophils # 0.0, PUBS MCHC 32.3, MCH 31.7 H Imaging: CXR 01/26/17 IMPRESSION: Mild COPD right perihilar right upper lobe pneumonia versus possible small right hilar mass and/or endobronchial lesion with postobstructive pneumonitis and I would suggest a follow-up CT scan chest for better evaluation. Chest CT 01/27/17 IMPRESSION: 1. Dense consolidation in the posterior segment of the right upper lobe. Probably related to dense pneumonia. Cannot completely exclude a pulmonary mass lesion. There are other areas of pneumonia as well. Recommend follow-up exam in 2-4 weeks following the appropriate treatment for pneumonia. There is trace right effusion and small parenchymal opacities in the left upper lobe and left lower lobe also probably related to underlying pneumonia. 2. Emphysema. 3. Coronary artery disease 01/29/17 CXR IMPRESSION: -------- Progression of dense focal consolidation right midlung -extends posterior from right paty. Progressive density & prominence at right paty, in part related above. (Remains difficult to exclude underlying mass at right paty and thus follow-up to resolution will be important) Progression of diffuse mainly interstitial infiltrate throughout the posterior right lung.. This was becoming evident on the recent CT chest from January 27, but is shown further progression since that time exam. Small right pleural effusion now evident Discharge medications: Start taking the following new medications: Lisinopril (Lisinopril) 10 MG TABLET 10 MILLIGRAM ORAL DAILY Qty = 30 No Refills Prednisone (Prednisone 10MG) 10 MG TABLET 10 MILLIGRAM ORAL TWICE A DAY Qty = 30 No Refills Albuterol Sulfate (Proair Hfa) 8.5 GM HFA.AER.AD 1 PUFF INHALATION EVERY 6 HOURS NEEDED as needed for SHORTNESS OF BREATH Qty = 1 No Refills UMECLIDINIUM BRM/VILANTEROL TR (Anoro Ellipta 62.5-25 Mcg INH) 1 EACH BLST.W.DEV 1 POWDER INHALATION DAILY Qty = 1 No Refills Comments: Sample provided to patient. Disposition: Discharged to home in stable and satisfactory condition. Meds as per reconciliation sheet. To continue with same diet and activity. Follow up with Dr. Duff in 13 days. Smoking cessation was discussed with the patient. at 0939
== END 2017-02-02 10:30 | disposition home or self-care (01) | DRG 195 ==
LOC: ER 17:44 → 2ND 19:50 → ER 19:50 → 2ND 21:05
PROVIDERS: Emergency Medicine; Family Medicine
DX: J18.9 Pneumonia, unspecified organism (principal); D69.6 Thrombocytopenia, unspecified; J44.9 Chronic obstructive pulmonary disease, unspecified; B97.0 Adenovirus as the cause of diseases classified elsewhere; E86.0 Dehydration; Z72.0 Tobacco use
CPT/HCPCS: G0378; J0456; Q9967